=== PATIENT | male | born 2000 | race Caucasian/White ===

== ENCOUNTER 2020-03-06 20:14 | Emergency (ER) | payer BC ==
[2020-03-06] MEDS ORDERED: DIPH,PERTUS(ACELL)TETVAC-LF 0.5 ML VIAL IM ONE (20:33)
[2020-03-06] MEDS ORDERED: LIDOCAINE 1% INJ 10MG/ML (20 ML MDV) SQ ONE (20:33)
--- NOTE | 2020-03-06 20:45 | ED ---
Wound/Laceration HPI - General Chief Complaint: Wound/Laceration Stated Complaint: R Hand Injury Time Seen by Provider: 03/06/20 20:21 Source: patient, family Mode of arrival: ambulatory Limitations: no limitations - History of Present Illness Initial Comments: Patient is a 19-year-old male presenting to the emergency Department with complaints of a laceration in his right hand. Patient states his hand slipped on a piece of farm equipment, on a blade cutting the dorsal aspect of his right hand. Bleeding is controlled at this time. Patient does not remember his last tetanus. He denies any other injuries at this time. Upon arrival to ER, his vital signs are stable. - Related Data Previous Rx's Medication Instructions Recorded Cephalexin [Keflex] 500 mg PO BID 5 Days #10 cap 03/06/20 Allergies Allergy/AdvReac Type Severity Reaction Status Date / Time No Known Allergies Allergy Verified 03/06/20 21:07 Review of Systems ROS Statement: Those systems with pertinent positive or pertinent negative responses have been documented in the HPI. ROS Other: All systems not noted in ROS Statement are negative. Past Medical History Past Medical History: No Reported History History of Any Multi-Drug Resistant Organisms: None Reported Past Surgical History: No Surgical Hx Reported Past Psychological History: No Psychological Hx Reported Smoking Status: Never smoker Past Alcohol Use History: None Reported Past Drug Use History: None Reported General Exam - General Exam Comments Initial Comments: GENERAL: Well-appearing, well-nourished and in no acute distress. HEAD: Atraumatic, normocephalic. EYES: Pupils equal round and reactive to light, extraocular movements intact, sclera anicteric, conjunctiva are normal. ENT: Moist mucous membranes. NECK: Normal range of motion, supple without lymphadenopathy or JVD. LUNGS: Breath sounds clear to auscultation bilaterally and equal. No wheezes rales or rhonchi. HEART: Regular rate and rhythm without murmurs, rubs or gallops. ABDOMEN: Soft, nontender, normoactive bowel sounds. No guarding, no rebound. No masses appreciated. : Deferred EXTREMITIES: Patient has full range of motion of his right fingers, and wrist. No pitting or edema. No clubbing or cyanosis. NEUROLOGICAL: Normal speech, normal gait. PSYCH: Normal mood, normal affect. SKIN: Warm, Dry, normal turgor, no rashes. Patient has a 2 cm laceration on the dorsal aspect of the right hand, in between the third and fourth metacarpal. There appears to be no tendon involvement as patient has full extension of all of his fingers. Bleeding is minimal at this time. Limitations: no limitations Course Vital Signs 03/06/20 03/06/20 20:18 21:55 Temperature 99.4 F 99.0 F Pulse Rate 58 L 62 Respiratory 16 18 Rate Blood Pressure 134/80 130/78 O2 Sat by Pulse 100 98 Oximetry Procedures - Laceration Laceration #1 Consent Obtained: verbal consent Indication: laceration Site: hand (Dorsal aspect right hand) Size (cm): 2 Description: linear Depth: simple, single layer Anesthetic Used: lidocaine 1% Anesthesia Technique: local infiltration Amount (mls): 4 Pre-repair: irrigated extensively Type of Sutures: nylon Size of Sutures: 5-0 Number of Sutures: 5 Technique: simple, interrupted Patient Tolerated Procedure: well Medical Decision Making - Medical Decision Making Patient is a 19-year-old male presenting with a 2 cm laceration on the dorsal aspect of his right hand. Patient has full extension of his right fingers. No tendon involvement. X-rays reveal no acute abnormality. Patient's wound was irrigated with 1 L of sterile saline, and wound was closed with 5, 5-0 sutures. Patient tolerated procedure well. Patient will be started on Keflex, first dose given in the ER. Patient's tetanus was also updated today. Patient is stable for discharge. Patient was given an Zeferino wrap to apply to the area to prevent hematoma. Patient will have sutures removed in 7-10 days. He is in agreement this plan of care. Return parameters were discussed with the patient and he verbalized understanding. Case discussed with Dr. Garrett. Disposition Clinical Impression: Laceration of right hand Disposition: HOME SELF-CARE Condition: Stable Instructions (If sedation given, give patient instructions): Care For Your Stitches (ED) Additional Instructions: Please return to the Emergency Department if symptoms worsen or any other concerns. Keep the laceration covered while working. Take antibiotics as prescribed. Sutures need to removed in 7-10 days. Prescriptions: Cephalexin [Keflex] 500 mg PO BID 5 Days #10 cap Is patient prescribed a controlled substance at d/c from ED?: No Referrals: Olvin Sánchez MD [Primary Care Provider] - 1-2 days
--- NOTE | 2020-03-06 21:30 | XR ---
EXAMINATION TYPE: XR hand limited RT DATE OF EXAM: 03/06/2020 COMPARISON: 09/08/2002 HISTORY: Laceration right hand from trailer at the fourth metacarpal TECHNIQUE: 2 view right hand FINDINGS: Growth plates are patent. Joint spaces are preserved. No radiopaque foreign bodies are evid ent. No acute fractures are evident. Subtle lucencies over the distal metadiaphyseal fourth metacarpal on the AP projection. This may be r elated to the laceration. This is not pass the cortex and fracture is considered unlikely. IMPRESSION: 1. No acute fractures evident. 2. No radiopaque foreign bodies.
[2020-03-06] MEDS ORDERED: CEPHALEXIN 500 MG CAP PO STA (21:48)
[2020-03-06 22:17] VITALS: BP 130/78; PULSE 62; RESP 18; TEMP 99
== END 2020-03-06 21:55 | disposition home or self-care (01) ==
LOC: EC 20:14
DX: S61.411A Laceration without foreign body of right hand, initial encounter (principal); Z23 Encounter for immunization; W31.82XA Contact with other commercial machinery, initial encounter
CPT/HCPCS: 73120; 90715; 99283; 12001; 90471; J2001